=== PATIENT | female | born 1955 | race Caucasian/White ===

== ENCOUNTER 2021-01-19 14:56 | Emergency (ER) | payer BC, SELFPAY ==
--- NOTE | ~2021-01-19 | CT_ITS ---
EXAMINATION: CT abdomen pelvis w con EXAM DATE: 01/19/2021 18:53 INDICATION: Left lower abdomen, left flank pain. TECHNIQUE: Spiral CT of the abdomen and pelvis was performed following intravenous injection of 100 m L Omnipaque 350. Axial, coronal and sagittal images of the abdomen and pelvis were reviewed. The do se-length product (DLP) for this examination was 981.55 mGy-cm. The exposure was tailored according to patient size (auto mA exposure control), and iterative reconstruction (ASIR) was used as additiona l dose reduction technique. There is no prior study for comparison. FINDINGS: The liver, spleen, adrenal glands and pancreas are unremarkable. Gallbladder is unremarkab le. No biliary obstruction. There is 5 mm stone in the mid aspect of the left ureter, at the L5 tra nsverse process level. There is mild left hydroureteronephrosis. On the right, probably some peripelv ic renal cysts. No ureteral stones. The uterus is anteverted and morphologically normal. The bladd er is unremarkable. There is no retroperitoneal or pelvic lymphadenopathy. There are no findings to suggest appendicitis. The stomach and small bowel are unremarkable. There is expected amount of colonic stool. No free intraperitoneal gas. The heart is normal in size. T here are no pericardial or pleural effusions. The lung bases are unremarkable. There are no osteobl astic or osteolytic lesions identified. IMPRESSION: Left mid ureteral 5 mm stone, mild obstructive nephropathy. Reviewed, dictated and finalized at location A. E EXAMINER
[2021-01-19 15:14] VITALS: BP 171/95; PULSE 86; RESP 20; TEMP 36.1; O2SAT 98
--- NOTE | 2021-01-19 17:16 | ED.ABDPAIN ---
HPI - Abdominal Pain General Chief Complaint: Abdominal Pain Stated Complaint: multiple c/o Time Seen by Provider: 01/19/21 17:03 Source: patient Mode of arrival: ambulatory Limitations: no limitations History of Present Illness HPI narrative: Patient presents with nausea, vomiting at least 3 times last night, associated with pain at the left flank and left lower quadrant. Patient denies any aggravating or relieving factors. Patient tested negative for COVID-19 infection twice over the last 3 days, patient is fully vaccinated for COVID-19 including the booster dose. History of ovarian tumor removal years ago, patient does not smoke, drink or uses drugs. Does not take medicine at home. Patient did not eat today because of the severe dry heaves. Related Data Allergies Allergy/AdvReac Type Severity Reaction Status Date / Time No Known Allergies Allergy Verified 01/19/21 18:38 Review of Systems Review of Systems: CONSTITUTIONAL: Denies fever, chills, or sweats. EYES: Denies visual changes, redness, or discharge. ENT: Denies rhinorrhea, congestion, sore throat, or otalgia. CARDIOVASCULAR: Denies chest pain, palpitations, or edema. RESPIRATORY: Denies cough or dyspnea. GASTROINTESTINAL: Denies abdominal pain, nausea, vomiting, or diarrhea. GENITOURINARY: Denies dysuria or hematuria. SKIN: Denies rash or itching. MUSCULOSKELETAL: Denies back pain, joint pain, or myalgia. NEUROLOGIC: Denies headache, numbness, or weakness. PSYCHIATRIC: Denies anxiety or depression. 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 Gender identity (if verbalized by the patient): Female Spiritual care concerns: No Agree to blood products: Yes Exam Narrative: General appearance: Well-developed, well-nourished Skin: Normal color Head: Normocephalic, nontraumatic Eyes: Clear conjunctiva ENT: Oropharynx normal, ears normal, nose normal Neck: Supple, nontender Chest and respiratory: Airway patent, no respiratory distress, no accessory muscle use Heart: Regular rate/rhythm Abdomen: Soft, mild epigastric tenderness, no guarding or rebound, no organomegaly, quiet bowel sounds Vascular: Normal peripheral pulses, normal capillary refill. Musculoskeletal: Normal range of motion, nontender back Neurologic: Alert and oriented ?3, RETAIL EQUIPMENT ASSOCIATE is normal as tested, no gross motor deficit Course Course Emergency Course: Stable, improving Vital Signs Vital signs: Vital Signs Temperature 36.1 C L 01/19/21 15:14 Pulse Rate 86 01/19/21 15:14 Respiratory Rate 20 01/19/21 15:14 Blood Pressure 171/95 H 01/19/21 15:14 Pulse Oximetry 98 01/19/21 15:14 Temperature 36.1 C L 01/19/21 15:14 Pulse Rate 74 01/19/21 17:44 Respiratory Rate 19 01/19/21 17:44 Blood Pressure 150/78 H 01/19/21 17:44 Pulse Oximetry 96 01/19/21 17:44 MDM - Abdominal Pain MDM Narrative Medical decision making narrative: Left flank, left lower quadrant pain Differential diagnosi
[2021-01-19 17:44] VITALS: BP 150/78; PULSE 74; RESP 19; O2SAT 96
[2021-01-19] MEDS: SODIUM CHLORIDE 0.9% IV 1,000 ML 999 ML IV CONT (17:51)
[2021-01-19] MEDS: ONDANSETRON INJ 4 MG/2 ML VIAL IV PUSH (17:54)
[2021-01-19] MEDS: HYDROmorphone HCL INJ (*CRX) 1 MG/ML SYR 0.5 MG IV PUSH (17:55)
[2021-01-19 18:00] LABS: Basophils Percent Auto 0.5 % (0.2-1.2); Eosinophils Percent Auto 0.2 % (0-4.4); Hematocrit 43.4 % (37.0-47.0); Hemoglobin 14.5 g/dL (12.0-15.0); Immature Granulocyte Absolute 0.02 K/mm3 (0.00-0.031); Immature Granulocyte Percent A 0.2 % (0-0.5); Lymphocytes Absolute Auto 1.46 K/mm3 (0.9-3.2); Lymphocytes Percent Auto 16.7 % (18.3-44.2); Mean Corpuscular HGB Conc 33.4 g/dl (32-36); Mean Corpuscular Hemoglobin 31.3 pg (26-34); Mean Corpuscular Volume 93.7 fl (80-100); Mean Platelet Volume 9.9 fl (7.4-10.4); Monocytes Absolute Auto 0.9 K/mm3 (0.1-0.6); Monocytes Percent Auto 9.8 % (2.6-8.5); Neutrophils Absolute Auto 6.4 K/mm3 (1.3-6.7); Neutrophils Percent Auto 72.6 % (45.5-73.1); Platelet Count Result 233 k/mm3 (150-375); Red Blood Count 4.63 M/mm3 (4.2-5.4); Red Cell Distribution Width 12.1 % (11.5-14.5); White Blood Count 8.8 K/mm3 (4.5-10.0)
[2021-01-19 18:03] LABS: Add Urine Microscopic? YES; Appearance Urine Clear (Clear); Bilirubin Urine Negative (Negative); Blood Urine 3+ (Negative); Color Urine Yellow (Yellow); Glucose Urine UA Negative (Negative); Ketones Urine 1+ mg/dL (Negative); Leukocyte Esterase Ur Negative LEU/UL (Negative); Mucus Urine Few /lpf; Nitrate Urine Negative (Negative); Protein Urine Negative (Negative); RBC Urine 21-50 /hpf (0-2); Specific Grav Ur 1.019 (1.001-1.035); Urobilinogen Urine Negative mg/dL (<2.0); WBC Urine 0-3 /hpf
[2021-01-19 18:13] LABS: Alanine Aminotransferase 50 U/L (4-35); Albumin Level 4.5 g/dL (3.5-5.1); Alkaline Phosphatase 88 U/L (38-126); Anion Gap 10 mmol/L (8-16); Aspartate Amino Transferase 38 U/L (14-36); Blood Urea Nitrogen 12 mg/dL (7-17); Calcium 9.7 mg/dL (8.4-10.2); Carbon Dioxide 24 mmol/L (22-30); Chloride 105 mmol/L (98-107); Estimated CRCL calculation 63 ml/min; Estimated Glomerular Filt Rate > 60; Glucose 108 mg/dL (65-110); Lipase 79 U/L (23-300); Potassium 3.8 mmol/L (3.4-5.0); Sodium 139 mmol/L (137-145)
[2021-01-19] MEDS: TAMSULOSIN HCL 0.4 MG CAPSULE PO (19:37)
[2021-01-19 19:38] VITALS: BP 140/74; PULSE 77; RESP 19; O2SAT 99
[2021-01-19] MEDS: KETOROLAC 30 MG/ML VIAL (*BKC) IV PUSH (19:38)
== END 2021-01-19 19:45 | disposition home or self-care (01) ==
PROVIDERS: Emergency Provider Emergency Medicine; PCP Family Medicine
DX: N13.8 Other obstructive and reflux uropathy (principal); N20.1 Calculus of ureter; M85.80 Other specified disorders of bone density and structure, unspecified site
CPT/HCPCS: 36415; 74177; 80053; 81001; 83690; 85025; 96361; 96374; 96375; 99284; A9270; J1170; J1885; J2405; J7030; Q9967

== ENCOUNTER 2021-01-24 13:04 | Outpatient (CLI) | payer BC, SELFPAY ==
--- NOTE | ~2021-01-24 | CT_ITS ---
EXAMINATION: CT abdomen pelvis wo con EXAM DATE: 01/24/2021 13:33 INDICATION: Left ureteral stone. TECHNIQUE: Spiral CT of the abdomen and pelvis was performed without contrast. Axial, coronal and sag ittal images were reviewed. The dose-length product (DLP) for this examination was 328.15 mGy-cm. T he exposure was tailored according to patient size (auto mA exposure control), and iterative reconstr uction (ASIR) was used as additional dose reduction technique. Comparison is made to prior examinatio n from 01/19/2021. FINDINGS: There is a 5 mm stone in the distal aspect of left ureter, about 5 cm from the ureterovesic ular junction. There is mild perinephric and periureteral fat stranding. No hydronephrosis at present . Stone has migrated more distally compared to 01/19/2021, is seen on image 159. The uterus is unrem arkable. The bladder is unremarkable. The liver, spleen, adrenal glands and pancreas are unremarka ble. Gallbladder is unremarkable. No biliary obstruction. There is no retroperitoneal or pelvic ly mphadenopathy. Small umbilical fat-containing hernia. The appendix is normal. There is mild sigmoid predominant colonic diverticulosis. There is no adjace nt inflammatory change to suggest diverticulitis. The stomach and small bowel are unremarkable. Ther e is expected amount of colonic stool. No free intraperitoneal gas. The heart is normal in size. There are no pericardial or pleural effusions. The lung bases are unremarkable. There are no osteo blastic or osteolytic lesions identified. IMPRESSION: Interval migration of left ureteral 5 mm stone to distal aspect of ureter. Mild perinephr ic and periureteral fat stranding. Reviewed, dictated and finalized at location B. AL OPERATOR IMPRESSION: Interval migration of left ureteral 5 mm stone to distal aspect of ureter. Mild perinephric and periureteral fat stranding.
--- NOTE | ~2021-01-24 | XR_ITS ---
XR abdomen/kub 1V DATE: 01/24/2021 13:25 INDICATION: Left ureteral stone TECHNIQUE: AP projection, 2 views COMPARISON: 01/19/2021 CT abdomen pelvis 01/24/2021 CT abdomen pelvis FINDINGS: 5 mm calcified left ureteral calculus overlies the lower left pelvic area. No evidence of any other urinary tract calcified calculi. The psoas shadows are intact. No visceromegaly is evident. No bowel obstruction. The lung bases appear clear. Heart size appears normal. IMPRESSION: Distal left ureteral 5 mm calcified calculus Reviewed, dictated and finalized at Location A. Reviewed, dictated and finalized at location A. N HIDE INSPECTOR
== END 2021-01-24 13:05 | disposition home or self-care (01) ==
LOC: ANHIMG 13:10
PROVIDERS: PCP Family Medicine; Visit Provider Nurse Practitioner Adult Health
DX: N20.1 Calculus of ureter (principal)
CPT/HCPCS: 74018; 74176

== ENCOUNTER 2021-02-03 14:45 | Outpatient (CLI) | payer BC, SELFPAY ==
--- NOTE | ~2021-02-03 | XR_ITS ---
XR abdomen/kub 1V DATE: 02/03/2021 15:01 INDICATION: Left ureteral stone TECHNIQUE: AP projection 2 views COMPARISON: 01/24/[address] abdomen pelvis FINDINGS: Previously reported 5 mm left ureteral calcified calculus has progressed further distally, now situated near the left ureterovesical junction. The psoas shadows are intact. No visceromegaly is evident. There is moderately prominent amount of fecal material in the colon but no bowel obstruction. IMPRESSION: 5 mm calcified calculus has progressed further distally since 01/24/2021, currently near left ureterovesical junction Reviewed, dictated and finalized at Location A. Reviewed, dictated and finalized at location A. ET RESEARCHER IMPRESSION: 5 mm calcified calculus has progressed further distally since 01/24, currently near left ureterovesical junction
== END 2021-02-03 14:46 | disposition home or self-care (01) ==
LOC: ANHIMG 14:48
PROVIDERS: PCP Family Medicine; Visit Provider Nurse Practitioner Adult Health
DX: N20.1 Calculus of ureter (principal)
CPT/HCPCS: 74018

== ENCOUNTER 2021-02-13 02:20 | Day surgery (SDC) | payer BC, SELFPAY ==
[2021-02-12 11:23] VITALS: BMI 33.3
--- NOTE | 2021-02-12 11:41 | PC.NURSE ---
Report to the Outpatient Waiting Room, entrance under the green pavilion located off [facility], at time __1:30 on date _02/13/21 . OR Time: ___3:30 . - You and your visitor will be asked a series of questions to screen for COVID 19 for your protection. - A mask is required within the hospital. - NO visitors are allowed at this time. Patient visitors will be guided where to wait when not with patient. Preoperative COVID Testing Requirements: No COVID Test needed if: (proof is required; if not received patient will have Rapid Test prior to entry) - Patient has received COVID Vaccine at least 14 days prior to procedure date or - Patient has positive COVID test result within last 90 days of surgery date. COVID Test needed if above criteria is not met If not COVID vaccinated a COVID test must be conducted within 72 hours of surgery and patient is asked to isolate self from time of testing until procedure. You will go to the [facility] for your COVID testing. The [facility] is located at the corner of [address] [facility]. You will only be called if COVID results are positive and your surgeon may reschedule your elective surgery date. Patients may have clear liquids (water, carbonated beverages, clear teas, apple juice) until 3 hours prior to surgery with a maximum of 20 ounces. (1230) - No food from midnight until time of surgery - Infants may have breast milk until 4 hours before surgery, formula 6 hours prior to surgery. - Children will be allowed to drink immediately following surgery. If applicable, please bring a bottle or sippy cup to assist with drinking. Juice, water, soda, and popsicles are readily available. For infants on formula, please bring formula the day of surgery. Pacifiers are allowed. Take the following medications with a SIP of water the morning of surgery: PAIN PILL IF NEEDED Medications to discontinue per physician N/A Date to take last dose Please no make-up, nail cambodian, hairspray, perfume, deodorant, or body powder the day of surgery. No jewelry (including any body piercings) or valuables the day of surgery, leave them at home. Please take a shower or bath the night before, or the morning of, surgery with an antibacterial soap. Wear comfortable, loose fitting clothing. Children are encouraged to wear pajamas. - Jewelry must be removed prior to entering the operating room. Rings and piercings that are not removed may be cut off. - The hospital will not accept responsibility for valuables. - Please leave all valuables, including medications, at home the day of surgery. If you are going home after surgery, a licensed escort vehicle driver must drive you home. - NO public transportation without another adult. - We recommend that an adult stay with you for 24 hours following discharge. - We also recommend that you do not drive, make important decision, drink alcoholic beverages, or take any drugs that were not prescribed by your health care provider for at least 24 hours after your discharge time. For Pediatric surgeries, we recommend two adults accompany the child home (only one inside the building at this time). Follow any additional instructions given to you from your surgeon. Telephone instructions given to __PT and asked if any additional questions and then verbalized understanding. Patient advised to call surgeon office or pre surgery nurse liaison [phone] if any additional questions.
[2021-02-13] VITALS (9 sets, daily range): BP systolic 118–195; BP diastolic 74–96; PULSE 64–81; RESP 14–17; TEMP 36.9; O2SAT 97–100
--- NOTE | ~2021-02-13 | XR_ITS ---
EXAMINATION: XR fluoroscopy no charge EXAM DATE: 02/13/2021 18:18 INDICATION: LT Stone Extraction Only No Retro/No Stent . TECHNIQUE: Fluoroscopy used during left ureteral stone extractionperformed by Dr. Jarret Arce MD. Radiologist was not present for the imaging or procedure. Total fluoroscopic time of 14 second s. The DAP for this procedure was 0.24 mGym2. A total of 7 images sent to PACS from the exam. FINDINGS: Left ureter was cannulated, wire and catheter identified extending over expected course of the ureter. Correlate with procedure note. IMPRESSION: Fluoroscopy used during left stone extraction. Reviewed, dictated and finalized at location A. WASHER
--- NOTE | ~2021-02-13 | XR_ITS ---
EXAMINATION: XR abdomen/kub 1V DATE: 02/13/2021 14:06 INDICATION: Left renal stone. TECHNIQUE: A supine view of the abdomen on 2 radiographs was obtained. COMPARISON: CT abdomen and pelvis 01/24/2021 FINDINGS: There are no dilated loops of bowel. There are phleboliths in the pelvis. There is a 5 mm s tone in distal left ureter. IMPRESSION: 1. 5 mm stone in distal left ureter. Reviewed, dictated and finalized at location A. OMER QUALITY ENGINEER
--- NOTE | 2021-02-13 06:57 | WPDHPUPDATE1 ---
History and Physical Update Update Date/Time: 02/13/21 06:57 History and Physical has been reviewed, including an updated exam of the patient. There are NO changes in the patient's condition. Risks, benefits, and alternatives have been discussed and questions answered. Patient agrees to proceed with procedure.
--- NOTE | 2021-02-13 13:58 | WPDANESEPPF ---
Anes - Initial Pre Proc Eval Procedure: Operation Date: 02/13/21 15:30 Proposed Procedures p Cystoscopy, Left Ureteroscopy, Left Retrograde Pyelogram, Stone Extraction, Possible Stent Placement, - Jarret Arce MD s Possible Holmium Laser Procedure - Jarret Arce MD Date/Time: 02/13/21 13:58 Surgeon: Jarret Arce MD Pre Op Diagnosis: left uretral stone Patient Data Age: 65 Gender: F Height: 1.65 m Weight: 90.9 kg Allergies Allergy/AdvReac Type Severity Reaction Status Date / Time No Known Allergies Allergy Verified 02/13/21 14:13 Home Medications Medication Instructions Recorded Confirmed Type hydrocodone-acetaminophen 1 tablet PO Q4H #20 tablet 01/19/21 02/12/21 Rx ondansetron HCl [Zofran] 4 mg PO Q6H PRN #10 tablet 01/19/21 02/12/21 Rx tamsulosin [Flomax] 0.4 mg PO DAILY #10 cap 01/19/21 02/12/21 Rx Patient hx anesthesia problems: none Family hx anesthesia problems: none Results Review: All pre-operative results and documents have been reviewed as part of the pre-operative evaluation. [facility] Past Medical History Medical History (Updated 02/12/21 @ 15:28 by Erwin Alatorre DO) Chronic low back pain Migraine Osteopenia PONV (postoperative nausea and vomiting) Family History Family History Sibling Patient's brother is in good health Family history of heart disease in male family member before age 55 Mother Family history of ulcerative colitis Father Family history of heart disease in male family member before age 55 Social History Social History Smoking status: Never smoker Second hand tobacco smoke exposure: No Alcohol intake: current Alcohol use details: STATES MAYBE 3-4 DRINKS/YEAR Substance use: never Substance use type: does not use Living arrangements: with family 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 Gender identity (if verbalized by the patient): Female Spiritual care concerns: No Agree to blood products: Yes Anes - Eval Final PreProcedure Day of Procedure 02/13/21 13:58 Patient weight: obese Heart: regular rate and rhythm Lungs: clear to auscultation and normal air movement Airway: Mallampati scale class II Neurological: alert and oriented Last oral intake: >/= 8 hours ASA classification: II Emergent: no Anesthetic plan: proceed Anesthesia type and monitoring: general LMA and standard monitoring Results Review: All pre-operative results and documents have been reviewed as part of the pre-operative evaluation. Informed Consent: The patient's anesthetic plan and its attendant risks and benefits were discussed with the patient/family/POA. Questions were solicited and answers provided to the satisfaction of the patient/family/POA.
[2021-02-13] MEDS: SCOPOLAMINE 1.5 MG PATCH TRANSDERM (14:36)
[2021-02-13] MEDS: LACTATED RINGERS 1,000 ML 30 ML IV CONT ×2 (14:36→17:57)
--- NOTE | 2021-02-13 14:42 | SUR.PREOP ---
PT TO XRAY AT 1351 PT RETURNED FROM XRAY AT 1416
[2021-02-13] MEDS: ceFAZolin 2 GM/D5W 50 ML 2 GM/50 ML BAG IVPB (17:25)
[2021-02-13] MEDS: LIDOCAINE HCL 2% GEL UROJET 10 ML PKG MUCOUS MEM (17:46)
[2021-02-13] MEDS: KETOROLAC 30 MG/ML VIAL (*BKC) IV PUSH (17:50)
--- NOTE | 2021-02-13 18:10 | W.PM.PROC2 ---
Procedure Note - Detailed Date of Procedure 02/13/21 Pre-op Diagnosis Left uretral stone Post-op Diagnosis same Procedure Performed Cystoscopy, left ureteroscopy with stone extraction Surgeon Jarret Arce MD Anesthesia general Description of Procedure The patient was brought to the operative suite where she is prepped and draped in a routine sterile fashion while in the dorsal lithotomy position after the uneventful induction of a general LMA anesthetic. A 19F rigid cystoscope was placed in the bladder. The patient had no evidence of urethral stricture or bladder neck contracture. The bladder mucosa was endoscopically normal without hyperemia or neoplasm. There was a single, orthotopic ureteral orifice bilaterally. A 0.035 glidewire was advanced into the left renal pelvis under fluoroscopy. The distal ureter was dilated with an 8F/10F ureteral dilator. Ureteroscopy was undertaken with a short, tapered, semi-rigid ureteroscope and the stone was extracted with ease using a 1.9F Escape disposable stone basket. Due to the ease of this manipulation I opted not to place a ureteral stent. The patient's bladder was emptied and was taken to the recovery room having tolerated this procedure well. Estimated Blood Loss 0 Drains No Packing No Pathology yes Complications No immediate complications Condition stable Disposition PACU
[2021-02-13] MEDS: fentaNYL CITRATE INJ (*CRX) 100 MCG/2 ML VIAL 25 MCG IV PUSH ×3 (18:15→19:25)
[2021-02-13] MEDS: ONDANSETRON INJ 4 MG/2 ML VIAL IV PUSH (19:11)
[2021-02-13] MEDS: HALOPERIDOL LACTATE 5 MG/ML VIAL 1 MG IV PUSH (19:44)
[2021-02-13] MEDS: diphenhydrAMINE HCl INJ 50 MG/ML VIAL 25 MG IV PUSH (20:28)
--- NOTE | 2021-02-13 20:37 | SUR.PHASEII ---
Addendum entered by Judith Delacruz RN 02/13/21 20:44: CORRCTION: THIS NOTE WAS WRITTEN BY JUDITH DELACRUZ RN. Original Note: DR. TURNER NOTIFIED ABOUT ELEVATED BLOOD PRESSURES; OKAY'D FOR PATIENT TO GO HOME. PATIENT DRESSED, WAITING FOR WHO IS WAITING FOR PHARMACY TO FILL HER MEDS. PAIN 2/10; NAUSEA IMPROVED. PT C/O'S OCCASIONAL URINARY FREQUENCY; DENIES DYSURIA.
--- NOTE | 2021-02-13 20:43 | SUR.PHASEII ---
DR. TURNER AWARE OF ELEVATED BLOOD PRESSURES. OKAY'D FOR PATIENT TO GO HOME.
== END 2021-02-13 20:50 | disposition home or self-care (01) ==
PROVIDERS: PCP Family Medicine; Visit Provider Urology
PROC: (CPT 52352; principal; 2021-02-13 15:30)
DX: N20.1 Calculus of ureter (principal); E66.9 Obesity, unspecified; Z68.33 Body mass index [BMI] 33.0-33.9, adult
CPT/HCPCS: 52352; 74018; 82365; 88300; A9270; C1769; J0131; J0690; J1100; J1200; J1630; J1885; J2405; J2704; J3010; J7120

== ENCOUNTER 2021-10-27 08:42 | Outpatient (CLI) | payer BC, SELFPAY ==
--- NOTE | ~2021-10-27 | XR_ITS ---
EXAM: XR abdomen/kub 1V DATE: 10/27/2021 09:03 HISTORY: LEFT URETERAL STONE FU STONE REMOVED FEBRUARY 2021 . COMPARISON: 02/13/2021. FINDINGS: Clear lung bases. Normal bowel gas pattern. No organomegaly. Pelvic phleboliths. Previousl y detected distal left ureteral stone no longer visualized. Degenerative changes in the lumbar spine. IMPRESSION: No radiographic evidence of urolithiasis. Reviewed, dictated and finalized at location K.
== END 2021-10-27 08:43 | disposition home or self-care (01) ==
PROVIDERS: PCP Family Medicine; Visit Provider Urology
DX: N20.1 Calculus of ureter (principal)
CPT/HCPCS: 74018

== ENCOUNTER 2023-01-15 12:28 | Outpatient (CLI) | payer BC, SELFPAY ==
--- NOTE | ~2023-01-15 | NM_ITS ---
EXAMINATION: NM hepatobiliary wo pharm DATE: 01/15/2023 16:18 [facility] INDICATION: Nausea COMPARISON: None. TECHNIQUE: 5 mCi Tc-99m mebrofenin (Choletec) was administered intravenously. Scintigraphic images o f the abdomen were obtained for one hour. At the 1 hour time point, the patient drank 8 oz Ensure, an d imaging was continued for 60 minutes. Gallbladder ejection fraction was calculated by the technolog ist. FINDINGS: There is normal clearance of radiotracer from the blood pool. There is homogeneous tracer u ptake by the liver. Activity progresses to the bowel and gallbladder. The gallbladder ejection fract ion is 74%. Note that with this technique, normal GBEF >= 33%. IMPRESSION: 1. Normal hepatobiliary scan. Reviewed, dictated and finalized at location B. ICE [facility]LAIN
== END 2023-01-15 12:29 | disposition home or self-care (01) ==
PROVIDERS: PCP Family Medicine; Visit Provider Nurse Practitioner Family
DX: R11.0 Nausea (principal); M54.9 Dorsalgia, unspecified; R07.89 Other chest pain; R19.4 Change in bowel habit; R14.0 Abdominal distension (gaseous)
CPT/HCPCS: 78226; A9537

== ENCOUNTER → 2023-01-15 16:12 | Outpatient (CLI) | payer BC, SELFPAY ==
--- NOTE | ~2023-01-15 | MM_ITS ---
EXAMINATION: MM screening carolee BI w leia HISTORY: Screening TECHNIQUE: Craniocaudal and mediolateral oblique 3-D tomosynthesis images were obtained and synthetic 2-D images were generated. CAD analysis was submitted and interpreted. COMPARISON: No prior mammogram is available for comparison at this institution. BREAST PARENCHYMAL COMPOSITION: The breasts are almost entirely fatty. FINDINGS: There are focal asymmetries in the lower aspect of the right breast. No evidence for malign alice in the left breast. IMPRESSION: 1. Focal right breast asymmetries. 2. Additional mammographic views and possible breast ultrasound are recommended. BI-RADS Category 0: Incomplete: Needs additional imaging evaluation. Reviewed, dictated and finalized at location A. KFEED MILLER IMPRESSION: 1. Focal right breast asymmetries. 2. Additional mammographic views and possible breast ultrasound are recommended . BI-RADS Category 0: Incomplete: Needs additional imaging evaluation.
== END ==
PROVIDERS: PCP Nurse Practitioner; Visit Provider Nurse Practitioner
DX: Z12.31 Encounter for screening mammogram for malignant neoplasm of breast (principal); R92.8 Other abnormal and inconclusive findings on diagnostic imaging of breast
CPT/HCPCS: 77063; 77067

== ENCOUNTER 2023-02-03 00:12 | Day surgery (SDC) | payer BC, SELFPAY ==
[2023-01-12 14:42] VITALS: BMI 33.3
--- NOTE | 2023-02-02 11:22 | SUR.PREOP ---
Patient called regarding upcoming procedure. Reviewed preop instructions, appointment times, and procedure prep.
--- NOTE | 2023-02-02 13:22 | PM.HPGS ---
History of Present Illness History of Present Illness Consent: Risks, benefits, and alternatives have been discussed and questions answered. Patient agrees to proceed with procedure. Chief complaint: Flatulence, abdominal distension gaseous Narrative: Yaima Aviles is a 67 year old female Was undergoing endoscopy for several different issues. She has been suffering from nausea for couple of years. She had her gallbladder checked with ultrasound which was normal. She has also been getting epigastric discomfort that radiates the left upper quadrant of her back a couple of times a week. She has excessive belching and feels a globus sensation and tickle in the throat . Her bowel movements vary from being somewhat hard to loose and frequent. Taking fiber has not helped her in the past. Her last colonoscopy was 10 years ago and was unremarkable except for diverticulosis. Review of Systems Review of Systems: All systems reviewed & are unremarkable except as noted in HPI and below PMFSH Past Medical History Medical History Atypical chest pain Belching BMI 34.0-34.9,adult Chronic low back pain Chronic nausea Diverticulosis Dyslipidemia Excessive gas Globus sensation Hx of nephrolithotomy with removal of calculi Mid back pain Migraine Osteopenia Surgical History Surgical History Hx of lithotripsy (~02/2021) Family History Family History Sibling Patient's brother is in good health Family history of heart disease in male family member before age 55 Heart disease Hypertension COPD (chronic obstructive pulmonary disease) Mother Family history of ulcerative colitis ESRF (end stage renal failure) Father Family history of heart disease in male family member before age 55 Heart disease Social History Social History Smoking status: Never smoker Second hand tobacco smoke exposure: Yes Alcohol intake: current Alcohol use details: rarely Substance use: never Substance use type: does not use Lack of Transportation: No Lack of Food: Never True Current Housing: I Have Housing Concerned About Future Housing: No Difficulty Paying Gas/Electric Bills: No Difficulty Paying for Meds: No Currently Unemployed: No Education: Bachelor's Degree Difficulty w/ Childcare or Family Care: No Living arrangements: with family Occupation/Education: occupation Additional occupation/education comments: [employer] Gender identity (if verbalized by the patient): Female Spiritual care concerns: No Agree to blood products: Yes Meds Home Medications and Allergies Home Medications Medication Instructions Recorded Confirmed Type atorvastatin 20 mg tablet 20 mg PO DAILY 12/03/22 02/03/23 History lisinopril 10 mg tablet 10 mg PO DAILY #90 tabs 12/23/22 02/03/23 Rx Lactobacillus rhamnosus-Bifidobac. 1 cap PO DAILY 01/12/23 02/03/23 History animalis 3 billion cell capsule ([employer]) Allergies Allergy/AdvReac Type Severity Reaction Status Date / Time No Known Allergies Allergy Verified 02/03/23 08:17 Exam Const: General: alert Orientation/consciousness: patient oriented x3 Resp: Auscultation: clear to auscultation bilaterally Cardio: Rhythm: regular rhythm GI: GI Palp: Yes Soft to palpation and No Tenderness to palpation present (GI) Neuro: General: patient oriented x3 Assessment and Plan Assessment and plan (1) Chronic nausea: Code(s): R11.0 - Nausea Status: Acute Assessment and Plan: EGD with possible biopsy or dilatation or cautery. (2) Change in bowel habits: Code(s): R19.4 - Change in bowel habit Status: Acute Assessment and Plan: Colonoscopy with possible biop
[2023-02-03 08:18] VITALS: BP 130/82; PULSE 98; RESP 16; TEMP 36.3; O2SAT 97; BMI 33.0
[2023-02-03] MEDS: LACTATED RINGERS 1,000 ML 150 ML IV CONT (08:36)
--- NOTE | 2023-02-03 09:02 | WPDANESEPPF ---
Anes - Initial Pre Proc Eval Procedure: Operation Date: 02/03/23 09:30 Proposed Procedures p Esophagogastroduodenoscopy & Colonoscopy - Ephraim Mercedes MD Date/Time: 02/03/23 09:02 Surgeon: Ephraim Mercedes MD Pre Op Diagnosis: Flatulence, abdominal distension gaseous Patient Data Age: 67 Gender: F Height: 1.65 m Weight: 90.2 kg Last Vital Signs Temp 97.4 F L 02/03/23 08:18 Pulse 98 02/03/23 08:18 Resp 16 02/03/23 08:18 BP 130/82 02/03/23 08:18 Pulse Ox 97 02/03/23 08:18 O2 Del Method Room Air 02/03/23 08:18 Allergies Allergy/AdvReac Type Severity Reaction Status Date / Time No Known Allergies Allergy Verified 02/03/23 08:17 Home Medications Medication Instructions Recorded Confirmed Type atorvastatin 20 mg tablet 20 mg PO DAILY 12/03/22 02/03/23 History lisinopril 10 mg tablet 10 mg PO DAILY #90 tabs 12/23/22 02/03/23 Rx Lactobacillus rhamnosus-Bifidobac. 1 cap PO DAILY 01/12/23 02/03/23 History animalis 3 billion cell capsule ([employer]) Patient hx anesthesia problems: none Family hx anesthesia problems: none Results Review: All pre-operative results and documents have been reviewed as part of the pre-operative evaluation. [facility] Past Medical History Medical History Atypical chest pain Belching BMI 34.0-34.9,adult Chronic low back pain Chronic nausea Diverticulosis Dyslipidemia Excessive gas Globus sensation Hx of nephrolithotomy with removal of calculi Mid back pain Migraine Osteopenia Surgical History Surgical History Hx of lithotripsy (~02/2021) Family History Family History Sibling Patient's brother is in good health Family history of heart disease in male family member before age 55 Heart disease Hypertension COPD (chronic obstructive pulmonary disease) Mother Family history of ulcerative colitis ESRF (end stage renal failure) Father Family history of heart disease in male family member before age 55 Heart disease Social History Social History Smoking status: Never smoker Second hand tobacco smoke exposure: Yes Alcohol intake: current Alcohol use details: rarely Substance use: never Substance use type: does not use Lack of Transportation: No Lack of Food: Never True Current Housing: I Have Housing Concerned About Future Housing: No Difficulty Paying Gas/Electric Bills: No Difficulty Paying for Meds: No Currently Unemployed: No Education: Bachelor's Degree Difficulty w/ Childcare or Family Care: No Living arrangements: with family Occupation/Education: occupation Additional occupation/education comments: [employer] Gender identity (if verbalized by the patient): Female Spiritual care concerns: No Agree to blood products: Yes Anes - Eval Final PreProcedure Day of Procedure 02/03/23 09:02 Patient weight: normal Heart: regular rate and rhythm Lungs: clear to auscultation Airway: Mallampati scale class II Neurological: alert and oriented Last oral intake: >/= 8 hours ASA classification: II Emergent: no Anesthetic plan: proceed Anesthesia type and monitoring: general GIVS and standard monitoring Results Review: All pre-operative results and documents have been reviewed as part of the pre-operative evaluation. Informed Consent: The patient's anesthetic plan and its attendant risks and benefits were discussed with the patient/family/POA. Questions were solicited and answers provided to the satisfaction of the patient/family/POA.
[2023-02-03] MEDS: SIMETHICONE ORAL SUSPENSION 20 MG/0.3 ML 30 ML BOTTLE 0.6 ML IRRIGATION (09:39)
--- NOTE | 2023-02-03 09:40 | SUR.OPER ---
EGD END TIME: 927 COLON START TIME: 934
[2023-02-03 09:48] VITALS: BP 121/73; PULSE 84; RESP 23; O2SAT 96
[2023-02-03 09:58] VITALS: BP 115/65; PULSE 73; RESP 18; O2SAT 100
[2023-02-03 10:08] VITALS: BP 122/72; PULSE 69; RESP 23; O2SAT 100
== END 2023-02-03 10:21 | disposition home or self-care (01) ==
PROVIDERS: PCP Family Medicine; Visit Provider Internal Medicine Gastroenterology
PROC: 0DJ08ZZ Inspection of Upper Intestinal Tract, Via Natural or Artificial Opening Endoscopic (ICD-10-PCS; CPT 43235; principal; 2023-02-03 09:30)
DX: R14.3 Flatulence (principal); K63.5 Polyp of colon; K64.8 Other hemorrhoids; K31.89 Other diseases of stomach and duodenum; K57.30 Diverticulosis of large intestine without perforation or abscess without bleeding; K29.50 Unspecified chronic gastritis without bleeding; K21.9 Gastro-esophageal reflux disease without esophagitis; K25.9 Gastric ulcer, unspecified as acute or chronic, without hemorrhage or perforation; E78.5 Hyperlipidemia, unspecified; R19.4 Change in bowel habit; M54.50 Low back pain, unspecified; G89.29 Other chronic pain; M85.80 Other specified disorders of bone density and structure, unspecified site; Z82.49 Family history of ischemic heart disease and other diseases of the circulatory system
CPT/HCPCS: 43239; 45380; 87081; 88305; J2704; J7120

== ENCOUNTER → 2023-02-18 08:03 | Outpatient (CLI) | payer BC, SELFPAY ==
--- NOTE | ~2023-02-18 | MM_ITS ---
EXAMINATION: MM diagnostic carolee RT w leia HISTORY: Possible right breast masses on screening mammogram TECHNIQUE: Additional 3-D tomosynthesis images of the right breast were performed and synthetic 2-D i mages were generated. CAD analysis was submitted and interpreted. COMPARISON: 01/15/2023, 11/21/2021, 08/02/2020, 07/06/2019 BREAST PARENCHYMAL COMPOSITION: There are scattered areas of fibroglandular density. FINDINGS: With spot compression, a 9 mm low density mass in the lower outer quadrant of the middle th ird of the right breast is stable when compared to prior mammograms. Additional asymmetries of the ri ght breast are also stable. No suspicious mass, calcification, or architectural distortion are identi fied. IMPRESSION: 1. No mammographic evidence of malignancy. 2. Recommend routine screening mammography in one year. BI-RADS Category 2: Benign finding(s). Reviewed, dictated and finalized at location [facility]
== END ==
PROVIDERS: PCP Obstetrics & Gynecology Gynecology; Visit Provider Obstetrics & Gynecology Gynecology
DX: R92.8 Other abnormal and inconclusive findings on diagnostic imaging of breast (principal)
CPT/HCPCS: 77061; 77065; G0279

== ENCOUNTER 2023-04-02 07:00 | Day surgery (SDC) | payer BC, SELFPAY ==
[2023-03-04 10:03] VITALS: BMI 32.3
--- NOTE | 2023-03-31 09:09 | SUR.PREOP ---
Patient called regarding upcoming procedure. Reviewed preop instructions, appointment times, and procedure prep.
[2023-04-02 07:16] VITALS: BP 135/63; PULSE 60; RESP 18; TEMP 36.3; O2SAT 96
[2023-04-02] MEDS: LACTATED RINGERS 1,000 ML 150 ML IV CONT (07:25)
--- NOTE | 2023-04-02 07:27 | PM.HPGS ---
History of Present Illness History of Present Illness Consent: Risks, benefits, and alternatives have been discussed and questions answered. Patient agrees to proceed with procedure. Chief complaint: Gastric ulcer Narrative: Yaima Aviles is a 67 year old female Who 2 months ago was found have several gastric ulcers. She returns now for follow-up to ensure healing. Review of Systems Review of Systems: All systems reviewed & are unremarkable except as noted in HPI and below PMFSH Past Medical History Medical History Atypical chest pain Belching BMI 34.0-34.9,adult Chronic low back pain Chronic nausea Diverticulosis Dyslipidemia Excessive gas Globus sensation Hx of nephrolithotomy with removal of calculi Mid back pain Migraine Osteopenia Surgical History Surgical History Hx of lithotripsy (~02/2021) Family History Family History Sibling Patient's brother is in good health Family history of heart disease in male family member before age 55 Heart disease Hypertension COPD (chronic obstructive pulmonary disease) Mother Family history of ulcerative colitis ESRF (end stage renal failure) Father Family history of heart disease in male family member before age 55 Heart disease Social History Social History Smoking status: Never smoker Second hand tobacco smoke exposure: Yes Alcohol intake: current Alcohol use details: rarely Substance use type: does not use Lack of Transportation: No Lack of Food: Never True Current Housing: I Have Housing Concerned About Future Housing: No Difficulty Paying Gas/Electric Bills: No Difficulty Paying for Meds: No Currently Unemployed: No Education: Bachelor's Degree Difficulty w/ Childcare or Family Care: No Living arrangements: with family Occupation/Education: occupation 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 1 cap PO DAILY 01/12/23 03/04/23 History animalis 3 billion cell capsule ([employer]) pantoprazole 40 mg tablet,delayed 40 mg PO QAM #30 tabs 02/03/23 03/04/23 Rx release atenolol 50 mg tablet 50 mg PO DAILY #90 tabs 02/16/23 03/04/23 Rx psyllium husk 0.4 gram capsule 0.4 g PO DAILY 03/04/23 03/04/23 History (Metamucil) Allergies Allergy/AdvReac Type Severity Reaction Status Date / Time lisinopril Allergy Hives Verified 04/02/23 07:15 Vital Signs Vital Signs - 24 hr 04/02/23 07:16 Temperature 36.3 C L Pulse Rate 60 Respiratory Rate 18 Blood Pressure 135/63 Pulse Oximetry 96 Oxygen Delivery Room Air Exam Const: General: alert Orientation/consciousness: patient oriented x3 Resp: Auscultation: clear to auscultation bilaterally Cardio: Rhythm: regular rhythm GI: GI Palp: Yes Soft to palpation and No Tenderness to palpation present (GI) Neuro: General: patient oriented x3 Assessment and Plan Assessment and plan (1) Gastric ulcer: Code(s): K25.9 - Gastric ulcer, unspecified as acute or chronic, without hemorrhage or perforation Status: Acute Assessment and Plan: EGD with possible biopsy or dilatation or cautery.
--- NOTE | 2023-04-02 08:09 | WPDANESEPPF ---
Anes - Initial Pre Proc Eval Procedure: Operation Date: 04/02/23 08:30 Proposed Procedures p Esophagogastroduodenoscopy - Ephraim Mercedes MD Date/Time: 04/02/23 08:09 Surgeon: Ephraim Mercedes MD Pre Op Diagnosis: Gastric ulcer Patient Data Age: 67 Gender: F Height: 1.68 m Weight: 95.3 kg Last Vital Signs Temp 97.3 F L 04/02/23 07:16 Pulse 60 04/02/23 07:16 Resp 18 04/02/23 07:16 BP 135/63 04/02/23 07:16 Pulse Ox 96 04/02/23 07:16 O2 Del Method Room Air 04/02/23 07:16 Allergies Allergy/AdvReac Type Severity Reaction Status Date / Time lisinopril Allergy Hives Verified 04/02/23 07:15 Home Medications Medication Instructions Recorded Confirmed Type atorvastatin 20 mg tablet 20 mg PO DAILY 12/03/22 03/04/23 History Lactobacillus rhamnosus-Bifidobac. 1 cap PO DAILY 01/12/23 03/04/23 History animalis 3 billion cell capsule ([employer]) pantoprazole 40 mg tablet,delayed 40 mg PO QAM #30 tabs 02/03/23 03/04/23 Rx release atenolol 50 mg tablet 50 mg PO DAILY #90 tabs 02/16/23 03/04/23 Rx psyllium husk 0.4 gram capsule 0.4 g PO DAILY 03/04/23 03/04/23 History (Metamucil) Patient hx anesthesia problems: none Family hx anesthesia problems: none Results Review: All pre-operative results and documents have been reviewed as part of the pre-operative evaluation. [facility] Past Medical History Medical History Atypical chest pain Belching BMI 34.0-34.9,adult Chronic low back pain Chronic nausea Diverticulosis Dyslipidemia Excessive gas Globus sensation Hx of nephrolithotomy with removal of calculi Mid back pain Migraine Osteopenia Surgical History Surgical History Hx of lithotripsy (~02/2021) Family History Family History Sibling Patient's brother is in good health Family history of heart disease in male family member before age 55 Heart disease Hypertension COPD (chronic obstructive pulmonary disease) Mother Family history of ulcerative colitis ESRF (end stage renal failure) Father Family history of heart disease in male family member before age 55 Heart disease Social History Social History Smoking status: Never smoker Second hand tobacco smoke exposure: Yes Alcohol intake: current Alcohol use details: rarely Substance use type: does not use Lack of Transportation: No Lack of Food: Never True Current Housing: I Have Housing Concerned About Future Housing: No Difficulty Paying Gas/Electric Bills: No Difficulty Paying for Meds: No Currently Unemployed: No Education: Bachelor's Degree Difficulty w/ Childcare or Family Care: No Living arrangements: with family Occupation/Education: occupation 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 Informed Consent: The patient's anesthetic plan and its attendant risks and benefits were discussed with the patient/family/POA. Questions were solicited and answers provided to the satisfaction of the patient/family/POA.
[2023-04-02 08:36] VITALS: BP 128/69; PULSE 74; RESP 20; O2SAT 100
[2023-04-02 08:46] VITALS: BP 129/68; PULSE 60; RESP 20; O2SAT 98
[2023-04-02 08:56] VITALS: BP 114/88; PULSE 58; RESP 20; O2SAT 99
--- NOTE | 2023-04-02 09:08 | SUR.PHASEII ---
0845: PT NOTED SMALL SORE INSIDE BOTTOM LIP FROM BITE BLOCK, PT INSTRUCTED TO PERFORM WARM SALT WATER RINSES AT HOME AND CALL DOCTOR IF SORE BECOMES WORSE OR NOT HEALING. ALSO NOTIFIED PT WE WILL CALL HER WEDNESDAY TO CHECK IN ON HER AND SEE HOW THE SORE IS DOING.
== END 2023-04-02 09:03 | disposition home or self-care (01) ==
PROVIDERS: PCP Family Medicine; Visit Provider Internal Medicine Gastroenterology
PROC: 0DJ08ZZ Inspection of Upper Intestinal Tract, Via Natural or Artificial Opening Endoscopic (ICD-10-PCS; CPT 43235; principal; 2023-04-02 08:30)
DX: K25.9 Gastric ulcer, unspecified as acute or chronic, without hemorrhage or perforation (principal); K21.9 Gastro-esophageal reflux disease without esophagitis; K44.9 Diaphragmatic hernia without obstruction or gangrene; E78.5 Hyperlipidemia, unspecified
CPT/HCPCS: 43239; 88305; 88342; J2001; J2704; J7120

== ENCOUNTER 2023-05-14 12:09 | Outpatient (CLI) | payer BC, SELFPAY ==
--- NOTE | ~2023-05-14 | DEXA_ITS ---
Bone Density Report Name: RENE WHALEY Age: 67 Sex: Female Ethnicity: White Date of : 1955 Indication: postmenopausal; screening for osteoporosis; Referring Provider: Claly Solorzano Study: Bone densitometry was performed. Exam Date: May 14, 2023 Accession number: [id number] Bone Density: Region BMD T-score Z-score Classification AP Spine (L1-L4) 1.106 0.5 2.5 Normal Femoral Neck (Left) 0.714 -1.2 0.4 Osteopenia Total Hip (Left) 0.890 -0.4 0.9 Normal Femoral Neck (Right) 0.863 0.1 1.8 Normal Total Hip (Right) 0.900 -0.3 1.0 Normal Total Hip Mean 0.895 -0.4 1.0 Normal World Health Organization criteria for BMD impression classify patients as: Normal (T-score at or above -1.0), Osteopenia (T-score between -1.0 and -2.5), or Osteoporosis (T-score at or below -2.5). 10-year Fracture Risk(1): Major Osteoporotic Fracture 8.2% Hip Fracture 0.8% Reported Risk Factors: [place] (), Neck BMD=0.714, BMI=35.5 (1) FRAX(R) Version 3.08. Fracture probability calculated for an untreated patient. Fracture probability may be lower if the patient has received treatment. Clinical Information Provided by Patient: Patient maximum height was 65.2 Menopause Age: 53 No regular weight bearing exercise Drinks caffeinated beverages Onset of menses at age 13 Number of children 1 Impression: The patient has low bone mass, based on the Left Femoral Neck T-score. The patient has an estimated ten-year risk of hip fracture of 0.8% and an estimated ten-year risk of major fracture of 8.2%, based on the WHO FRAX algorithm. Discussion: BONE DENSITY IS LOW AT ONE OR MORE SKELETAL SITES. This patient's lowest T-score is low at one or more skeletal sites. It meets the World Health Organization's (WHO) criteria for ?low bone mass? (T-score between -1.0 and -2.5). The patient's 10-year risk of fracture as calculated by FRAX is less than the threshold where pharmacological therapy is recommended by the National Osteoporosis Foundation (NOF). However, all treatment decisions require clinical judgment and consideration of individual patient factors, including patient preferences, comorbidities, previous drug use, risk factors not captured in the FRAX model (e.g., frailty, falls, vitamin D deficiency, increased bone turnover, interval significant decline in bone density) and possible under or overestimation of fracture risk by FRAX. The patient should follow a healthful lifestyle (good nutrition with adequate calcium and vitamin D, and appropriate weight-bearing exercise). Follow-Up: Consider repeating this study in 2 to 3 years to reassess this patient's status, or sooner if there is some new clinical indication. Reported by: FLORENTIN on 05/14/2023 12:22:00 PM.
== END 2023-05-14 12:10 ==
LOC: MICIMG 12:10
PROVIDERS: PCP Obstetrics & Gynecology Gynecology; Visit Provider Family Medicine
DX: Z78.0 Asymptomatic menopausal state (principal); M85.852 Other specified disorders of bone density and structure, left thigh
CPT/HCPCS: 77080

== ENCOUNTER 2023-06-03 10:34 | Outpatient (CLI) | payer BC, SELFPAY ==
[2023-06-03 14:16] LABS: Alanine Aminotransferase 34 U/L (6-35); Albumin Level 4.3 g/dL (3.5-5.1); Alkaline Phosphatase 73 U/L (38-126); Anion Gap 6 mmol/L (4-12); Aspartate Amino Transferase 50 U/L (14-36); Bilirubin,Total 0.7 mg/dL (0.2-1.3); Blood Urea Nitrogen 15 mg/dL (7-17); Calcium 9.9 mg/dL (8.4-10.2); Carbon Dioxide 27 mmol/L (22-30); Chloride 108 mmol/L (98-107); Estimated Glomerular Filt Rate > 60; Glucose 91 mg/dL (65-110); Potassium 4.1 mmol/L (3.4-5.0); Sodium 141 mmol/L (137-145)
[2023-06-03 22:02] LABS: Vitamin D 25 Hydroxy 27.2 ng/mL
== END 2023-06-03 10:35 | disposition home or self-care (01) ==
LOC: ANHGOSHLAB 10:35
PROVIDERS: PCP Family Medicine; Visit Provider Family Medicine
DX: E78.5 Hyperlipidemia, unspecified (principal); I10 Essential (primary) hypertension; E53.8 Deficiency of other specified B group vitamins; E55.9 Vitamin D deficiency, unspecified
CPT/HCPCS: 36415; 80053; 82306; 82607

== ENCOUNTER 2024-04-17 11:58 | Outpatient (CLI) | payer BC, SELFPAY ==
--- NOTE | ~2024-04-17 | MM_ITS ---
EXAMINATION: MM screening carolee BI w leia HISTORY: Screening mammogram TECHNIQUE: Craniocaudal and mediolateral oblique 3-D tomosynthesis images were obtained and synthetic 2-D images were generated. CAD analysis was submitted and interpreted. COMPARISON: 01/15/2023, 11/21/2021, 08/02/2020 BREAST PARENCHYMAL COMPOSITION:Not Dense. The breasts are almost entirely fatty FINDINGS: No suspicious mass, calcification, or architectural distortion are identified in either bienvenido ast to suggest malignancy. There has been no suspicious interval change. IMPRESSION: No mammographic evidence of malignancy. Recommend routine screening mammography in one year. BI-RADS Category 1: Negative Reviewed, dictated and finalized at location .
== END 2024-04-17 11:59 | disposition home or self-care (01) ==
LOC: MICIMG 11:59
PROVIDERS: PCP Family Medicine; Visit Provider Obstetrics & Gynecology Gynecology
DX: Z12.31 Encounter for screening mammogram for malignant neoplasm of breast (principal)
CPT/HCPCS: 77063; 77067